=== PATIENT | female | born 2005 | race Caucasian/White ===

== ENCOUNTER 2025-02-06 05:31 | Inpatient (IN) | payer OTHER, SELFPAY ==
[2025-02-06] VITALS (20 sets, daily range): BP systolic 109–143; BP diastolic 63–86; PULSE 80–118; RESP 16–17; TEMP 36.5–37.4; O2SAT 96
[2025-02-06 06:57] LABS: HCT 34.8 % (36.0-46.0); HGB 10.7 g/dL (11.2-15.7); MCH 25.6 pg (27.0-33.0); MCHC 30.7 % (32.0-36.0); MCV 83 fL (80-95); MPV 9.6 fL (8.0-11.0); Platelet Count 389 10^3/uL (130-400); RBC 4.18 10^6/uL (3.93-5.22); RDW 15.5 % (11.7-14.6); RDW-SD 47.1 fL; WBC 12.48 10^3/uL (4.4-10.8)
--- NOTE | 2025-02-06 07:11 | W.PM.OBHPL1 ---
Date of service: 02/06/25 Time of Service: 07:11 Assessment and Plan Assessment and plan (1) Spontaneous onset of labor: Status: Acute Assessment and plan: Admit to Center and routine admission labs. Comfort measures. Alannah hopes to use the tub for comfort. Anticipate . OB-HPI Labor/Delivery History of Present Illness Reason for Visit: NST Chief Complaint: Uterine Contractions. LAN Calculator Estimated Delivery Date Method Current WG Current Estimate 02/10/25 Manual 39w 3d Other Estimates 02/07/25 Ultrasound #2 39w 6d Comments: Alannah transferred her care at 37 weeks from [facility]. She started care in [place] and labs were done there. Per inquiry at [facility] re: GBS status, it was reported as neg. Alannah called at 0345 and reported strong regular contractions at home. She denies ROM but has had a lot of mucus discharge lately. History of Present Expected Delivery Route/Plan - CNM ANGELA Lee, healthy (first baby) Desires option of waterbirth CHRIS Lee III Desires circ Specific Issues/Plan 1. Transfer of care from [facility] at 37 + 4 weeks gestation, started care in [place], obtain record release from [place] , Blood type A pos. 2. History of hypothyroid. Most recent TSH 11/17/24- 4.15 3. painful external hemorrhoid, r/o thrombosed, referred to general surgery (seen 01/30, no indication for I/D). Rx Anusol & Lidocaine. Assessment: History Reviewed & Current [facility] All Active Problems (Updated 02/06/25 @ 07:16 by Alice Ernandez CNM) Spontaneous onset of labor (Acute) Hemorrhoids during in third trimester (Acute) Thrombosed external hemorrhoid (Acute) History of PCOS (Acute) Hypothyroidism (Chronic) (Acute) G1, P0 late transfer of care at 36 weeks. GC negative hepatitis negative slic hepatitis C negative HIV negative RPR negative rubella immune. care initially at [place]. Normal 20-week ultrasound, a positive, 1 hour glucose tolerance test normal at 92 Family History (Updated 01/24/25 @ 15:23 by Alice Ernandez CNM) Father , 50 Heart disease Amyloidosis Diabetes Hypertension Maternal Grandmother Family history of alpha 1 antitrypsin deficiency Mother Cystic fibrosis Social History Smoking/Tobacco Use Status: Never Smoking risk assessment performed?: Yes Alcohol Intake: never Drug use: Never Substance use type: does not use Do you feel safe at home: Yes Do you feel safe in your relationship?: Yes History History 1 Para Hx # Term Pregnancies Multiple births Hx # Pregnancies Ectopic pregnancies AB induced Hx Number of Living Children 0 AB spontaneous Meds Allergies and Home Medications Allergies Allergy/AdvReac Type Severity Reaction Status Date / Time latex Allergy Mild Skin Rash Verified 02/01/25 16:00 No Known Drug Allergies Allergy Other (See Verified 02/01/25 16:00 Comment) Home Medications ?Medication ?Instructions ?Recorded ?Confirmed ?Type multivitamin 1 tab PO DAILY 01/24/25 02/06/25 History hydrocortisone acetate 25 mg 25 mg NC DAILY #12 ea 01/29/25 02/06/25 Rx rectal suppository (Anusol-HC) lidocaine HCl 4 % topical gel 1 applic topical BID-QID PRN pain 02/01/25 02/06/25 Rx #118 mL Exam Physical Exam Vital signs: Temp Pulse Resp BP 97.9 F 89 16 133/86 02/06/25 05:48 02/06/25 06:52 02/06/25 05:48 02/06/25 06:52 Vital Signs Reviewed: Yes Constitutional Constitutional: mild distress Detailed Labor and Delivery Exam Dilation: 6 Effacement (%): 100 station: 0 Cervix position: mid Consistency: soft Randolph Score: Cervical Points Exam 0 1 2 3 Dilation Closed 1-2cm 3-4 cm 5-6cm Effacement 0-30% 40-50% 60-70% 80% Consistency Firm Medium Soft Station -3 -2 -1,0 +1,+2 Position Posterior Mid Anterior Amniotic Membrane Status: Intact Monitor Mode: External Contraction Frequency(min): every 3 - 4 min Contraction Duration(sec): 60 Contraction Intensity: Strong Fetus A Heart Rate Baseline: 130 Monitor Accelerations: 15 X 15 Monitor Decelerations: None Variability: Moderate (6-25 BPM) Presentation: Cephalic Categories: Category I Est. Weight: 7 lb HEENT Exam HEENT Exam: Normal Respiratory Exam Respiratory Exam: Normal Cardiovascular Exam Cardiovascular Exam: Normal Abdominal Exam Abdominal Exam: Normal Exam Exam: Normal Extremities Exam Extremities Exam: Normal Skin Exam Skin Exam: Normal Psychiatric Exam Psychiatric Exam: Normal Results Results Group Beta Strep: Negative (per verbal report today at [facility]) Abnormal Lab Findings: Abnormal Labs 02/06/25 06:36 WBC 12.48 H Hgb 10.7 L Hct 34.8 L MCH 25.6 L MCHC 30.7 L RDW 15.5 H Risk Assessment Risk for Shoulder Dystocia Historical/Initial OB: NEGATIVE FOR: Pelvic Abnormality, Pre- BMI>30, Previous Shoulder Dystocia or Previous Macrosomia 36 Weeks: NEGATIVE FOR: Current Gestational DM, EFW>4500gms or Maternal Weight Gain>40lbs 40 Weeks: POSTIVE FOR: Maternal Weight Gain >40lb; NEGATIVE FOR: EFW> 4500 gms or Post Dates Increased Risk?: Yes Risk for Pre-Eclampsia Yes, if one or more: NEGATIVE FOR: Hx Pre-E/Gest HTN, Chronic HTN, Multiple Gestation, Pre-gestational DM, Renal Disease, Systemic Lupus or APA Syndrome Yes, if 2 or more: POSITIVE FOR: Nulliparity; NEGATIVE FOR: Age>= 35 yrs, >10yr btwn pregnancies, BMI>30, ethinicty, Mother/Sister w/ Pre-E or Previous IUGR Risk for Post- Hemorrhage Initial: NEGATIVE FOR: Multiple Gestation, Previous PPH, Known Clotting Deficiency, Grand Multiparity or Anticoagulation 36 Weeks: NEGATIVE FOR: Anemia, hgb<10, Low platelets(thrombocytopenia), Gestational HTN or Pre-E, Polyhydraminios or EFW>4500gms 40 Weeks: NEGATIVE FOR: Anemia, hgb<10, Low platelets (thrombocytopenia), Gestation HTN or Pre-E, Polyhydraminios or EFW>4500gms At Risk?: No Risks Reviewed Risks Reviewed Upon Admission: Yes
[2025-02-06 07:15] LABS: ALT 18 U/L (10-49); AST 20 U/L (<34); Albumin 4.0 g/dL (3.2-5.0); Alkaline Phosphatase 194 U/L (46-116); Anion Gap 10.5 mmol/L (3-11); BUN 12 mg/dL (9-23); Bilirubin, Total 0.4 mg/dL (0.2-1.2); CO2 21.5 mmol/L (20.0-31.0); Calcium 9.5 mg/dL (8.3-10.6); Chloride 105 mmol/L (98-107); Glucose 96 mg/dL (74-106); Potassium 3.9 mmol/L (3.5-5.1); Sodium 137 mmol/L (136-145); Total Protein 7.2 g/dL (5.7-8.2)
[2025-02-06] MEDS: Lidocaine 1% Multi-Dose 20 ML VIAL IJ (08:38)
[2025-02-06] MEDS: Oxytocin/Normal Saline 30 UNIT/500 ML BAG 167 UNITS IV (08:38)
[2025-02-06] MEDS: NALBUPHINE 5 MG in Normal Saline 50 ML 100 MG IV (09:19)
[2025-02-06] MEDS: Hamamelis Leaf/Glycerin 100 EACH BOX PR (10:34)
[2025-02-06] MEDS: Dibucaine 1% 28 GM TUBE TP (10:34)
[2025-02-06] MEDS: Ibuprofen 100 MG/5 ML CUP 400 MG PO (10:34)
--- NOTE | 2025-02-06 11:18 | W.OBDELIVERY ---
Date of service: 02/06/25 Time of Service: 11:18 OB Labor/ Delivery Information Baby A Delivery Delivery Method: Spontaneaous Presentation: Cephalic Vertex Position: Left Occipital Anterior Cord Description-Baby A: 3 Vessels Cord Description Comment: short cord Amniotic Fluid: Clear Estimated Blood Loss: 250 Delivery Outcome: Liveborn Infant Transferred: Remains with Mother Note: FHTs 120s during first stage of labor. Alannah moved to the tub and soon after began experiencing an urge to push. FHTs 120s in second stage. She progressed to full dilation and began pushing on her hands and knees. Her Jesus assisted er in the tub with her. Second stage huddle was done. Spontaneous delivery of male infant delivered in NIA position. Baby was placed on mother's arms. Spontaneous cry. Cord was clamped and cut by the baby's father. She was moved to her bed and The placenta delivered spontaneously and appears to by intact with a three vessel cord. Alannah declined IM pitocin and requested an IV for induction. An IV was started after several attempts, Pitocin 30 units was then administered ater delivery of the placenta. The perineum was inspected and a second degree laceration was encountered. Alannah had a very difficult time relaxing for repair of perineum. Nitrous oxide and IV push nubain 5 mg was helpful and she tolerated the repair better. The baby did breastfeed. After delivery, Mother and baby and father of the baby were stable and bonding well in the delivery room and there were no complications. His name is Jesus PERKINS. Records have been requested from [place] with labs. Providers Nurse Editor [employer]: Alice Ernandez Nurse: Kayleigh Burks Nurse: Nguyen Hamilton Labor/Delivery Information Steroids Given: None Reason Steroids Not Administered: N/A Group Beta Strep: Negative (reported by phone from labor and delivery at [facility]) Antibiotics Administered: No Blood Type: A+ Shoulder Dystocia: No Stages of Labor Onset of Labor Date: 02/06/25 Onset of Labor Time: 01:00 Complete Dilatation Date: 02/06/25 Complete Dilatation Time: 08:25 Labor - Stage 1 Duration: 7 hours and 25 minutes Delivery Date-Baby A: 02/06/25 Infant Delivery Time-Baby A: 08:38 Labor Stage 2 Duration: 13 minutes Placenta Delivery Date-Baby A: 02/06/25 Placenta Delivery Time-Baby A: 08:52 Labor-Stage 3 Duration: 14 minutes Total Length of Labor-Baby A: 7 hours and 38 minutes Placenta Status: Delivered Baby A Gender: Male Gestational Status: Term (39-41.6 wks) Gestational Age in Weeks/Days: 39 Weeks and 3 Days Score-1 Minute Interval(Baby A) Heart Rate-1 minute: 100 BPM or Greater Respiratory Effort- 1 minute: Spontaneous/Strong Cry Muscle Tone-1 minute: Active Movement Reflex Response-1 minute: Prompt Response Color-1 minute: Pallor or Cyanosis Total Score-1 minute: 8 Score-5 Minute Interval(Baby A) Heart Rate- 5 minute: 100 BPM or Greater Respiratory Effort-5 minute: Spontaneous/Strong Cry Muscle Tone-5 minute: Active Movement Reflex Response-5 minute: Prompt Response Color-5 minute: Bluish Hands or Feet Total Score- 5 minute: 9 Interventions Repair of Laceration Type: Perineal, Laceration Extension: Second Degree. Sponge Count Correct: No Sponges Placed in Vagina, Sharp Count Correct: Yes. Laceration Repair Note: repair with one uninterrupted 3-0 vicryl suture and one external nilda-anal ineterrupted skin suture.
[2025-02-06 19:08] LABS: Abs Immature Grans 0.14 10^3/uL (0.0-0.06); HCT 28.4 % (36.0-46.0); HGB 8.9 g/dL (11.2-15.7); Immature Grans % 0.9 %; MCH 26.0 pg (27.0-33.0); MCHC 31.3 % (32.0-36.0); MCV 83 fL (80-95); MPV 10.0 fL (8.0-11.0); Platelet Count 306 10^3/uL (130-400); RBC 3.42 10^6/uL (3.93-5.22); RDW 15.5 % (11.7-14.6); RDW-SD 46.7 fL; WBC 16.43 10^3/uL (4.4-10.8)
[2025-02-06] MEDS: Acetaminophen 80 MG CHEW 640 MG PO (20:40)
[2025-02-06] MEDS: Ibuprofen 100 MG/5 ML CUP 600 MG PO (20:40)
[2025-02-07] MEDS: Acetaminophen 80 MG CHEW 640 MG PO (00:59)
[2025-02-07] MEDS: Ibuprofen 100 MG/5 ML CUP 600 MG PO ×2 (02:34→16:58)
[2025-02-07] MEDS: Normal Saline Flush 10 ML SYR IVP (03:00)
[2025-02-07 08:15] VITALS: BP 117/81; PULSE 93; RESP 16; TEMP 36.7; O2SAT 97
--- NOTE | 2025-02-07 08:19 | OBPPV_ITS ---
Date of service: 02/07/25 Time of Service: 08:19 Assessment and Plan Assessment and plan (1) Anemia, : Status: Acute Assessment and plan: Pt denies feeling dizzy or short of breath Hgb 8.9, iron sucrose infusion planned for this morning (2) Term delivered: Status: Acute Assessment and plan: A: PPD#1, pt is satisfied with experience; a bit tentative at this point Hemorrhoids continue to cause pt discomfort 2nd degree perineal repair also uncomfortable General musculoskeletal pain addressed with tylenol & ibuprofen Urine output 1700 ml since delivery, normotensive, afebrile this morning P: Topical treatments for rectal and perineal discomfort Iron infusion this morning; received IVF through the night due to infrequent voiding Recheck CBC this afternoon (WBC @ 16 yesterday) Monitor temp, output, and encourage pt to ambulate hourly while awake SCD's if pt declines to get out of bed; continue tylenol/ibuprofen Offer varicella vaccine prior to discharge which is planned for tomorrow LC consult to support (3) Hemorrhoids during in third trimester: Status: Acute Assessment and plan: Tucks and lidocaine ointment for prn application Stool softeners ordered Subjective Subjective Interval history: Pt states her hemorrhoids hurt and her stitches are painful, is afraid to get up and void or move around much due to discomfort. Unable to swallow pills and requests liquid or chewable medication Patient comments: Tolerating diet and Flatus present Patient's Mood: calm [place] baby status: Doing well, Nursing well and Rooming in [place] feeding status: Exclusively breast feeding Exam Physical Exam Vital signs: Temp Pulse Resp BP Pulse Ox 98.1 F 107 H 16 109/70 96 02/06/25 23:00 02/06/25 23:00 02/06/25 23:00 02/06/25 23:00 02/06/25 23:00 Vital Signs Reviewed: Yes Narrative: Earlier low grade temp noted, seemly resolved. Constitutional Constitutional: mild distress, obese and cooperative HEENT Exam HEENT Exam: Normal Neck Exam Neck Exam: Normal Breast Exam Bilateral: Breast Exam: Normal and Soft Nipple Exam: Normal and Uninjured Respiratory Exam Respiratory Exam: Normal Cardiovascular Exam Cardiovascular Exam: Normal Abdominal Exam Abdomen: Other (soft, nontender) Fundal Exam Fundus: Below Umbilicus and Firm Rectal Exam Rectal Exam: Hemmorhoids Exam Perineum: Repair Intact Extremities Exam Extremity Exam: Normal, Full ROM and Warm to Touch Back/Spine/Pelvis Exam Back Exam: Normal Skin Exam Skin Exam: Normal Neurological Exam Neurological Exam: Normal Psychiatric Exam Psychiatric Exam: Normal (nurses evaluating bonding and attachment with ) Results Hemoglobin/Hematocrit: Hgb Cancelled 02/07/25 10:00 Hct Cancelled 02/07/25 10:00 Abnormal Lab Findings: Abnormal Labs 02/06/25 02/06/25 06:36 18:50 WBC 12.48 H 16.43 H RBC 3.42 L Hgb 10.7 L 8.9 L Hct 34.8 L 28.4 L MCH 25.6 L 26.0 L MCHC 30.7 L 31.3 L RDW 15.5 H 15.5 H Absolute Neutrophils 11.78 H Absolute Monocytes 1.36 H Creatinine 0.47 L Alkaline Phosphatase 194 H
[2025-02-07] MEDS: IRON SUCROSE COMPLEX 300 MG in Normal Saline 250 ML 167 MG IVPB (08:46)
[2025-02-07] MEDS: Lidocaine 4% Cream 5 GM TUBE TP (08:47)
[2025-02-07 13:35] VITALS: BP 111/70; PULSE 108; RESP 16; TEMP 36.8; O2SAT 96
[2025-02-07 14:30] LABS: Abs Immature Grans 0.25 10^3/uL (0.0-0.06); HCT 29.8 % (36.0-46.0); HGB 9.2 g/dL (11.2-15.7); Immature Grans % 1.6 %; MCH 26.1 pg (27.0-33.0); MCHC 30.9 % (32.0-36.0); MCV 84 fL (80-95); MPV 9.3 fL (8.0-11.0); Platelet Count 305 10^3/uL (130-400); RBC 3.53 10^6/uL (3.93-5.22); RDW 15.9 % (11.7-14.6); RDW-SD 48.0 fL; WBC 16.12 10^3/uL (4.4-10.8)
[2025-02-07 16:50] VITALS: BP 126/86; PULSE 104; RESP 16; TEMP 36.9; O2SAT 97
[2025-02-07] MEDS: Acetaminophen Solution 650 MG/20.3 ML CUP PO (16:58)
[2025-02-07 20:00] VITALS: BP 116/70; PULSE 107; RESP 18; TEMP 36.4; O2SAT 98
[2025-02-08 00:30] VITALS: BP 125/78; PULSE 101; RESP 18; TEMP 36.8; O2SAT 98
[2025-02-08 04:01] VITALS: BP 121/82; PULSE 102; RESP 18; TEMP 36.7; O2SAT 97
[2025-02-08 05:51] LABS: HCT 28.4 % (36.0-46.0); HGB 8.7 g/dL (11.2-15.7); MCH 26.3 pg (27.0-33.0); MCHC 30.6 % (32.0-36.0); MCV 86 fL (80-95); MPV 9.7 fL (8.0-11.0); Platelet Count 297 10^3/uL (130-400); RBC 3.31 10^6/uL (3.93-5.22); RDW 16.0 % (11.7-14.6); RDW-SD 49.2 fL; WBC 17.45 10^3/uL (4.4-10.8)
[2025-02-08 08:30] VITALS: BP 119/83; PULSE 98; RESP 16; TEMP 36.7; O2SAT 98
--- NOTE | 2025-02-08 08:54 | W.PM.OBPNV1 ---
Date of service: 02/08/25 Time of Service: 08:54 Assessment and Plan Assessment and plan (1) Anemia, : Status: Acute Assessment and plan: Pt denies feeling dizzy or short of breath iron sucrose infusion 300 mg IV given yesterday (2) Term delivered: Status: Acute Assessment and plan: A: PPD#2, is progressing Hemorrhoids less painful, no edema; 2nd degree perineal repair intact CBC today: WBC @ 17 today, hgb 8.7; afebrile x48 hrs Declines varicella vaccine P: Discharge to home today, reviewed pt status with Dr. Howell Will check urine C&S; plan recheck CBC in 1 week Written instructions reviewed and given Additional f/up @ 2 & 6 wks; undecided about contraception (3) Hemorrhoids during in third trimester: Status: Acute Assessment and plan: Tucks and lidocaine ointment for prn application Stool softeners ordered Subjective Subjective Patient comments: No complaints, Pain well controlled, Tolerating diet and Flatus present Patient's Mood: happy baby status: Doing well, Nursing well, Rooming in and Strong Bonding Observed feeding status: Exclusively breast feeding Exam Physical Exam Vital signs: Temp Pulse Resp BP Pulse Ox 98.1 F 102 H 18 121/82 97 02/08/25 04:01 02/08/25 04:01 02/08/25 04:01 02/08/25 04:01 02/08/25 04:01 Vital Signs Reviewed: Yes Constitutional Constitutional: no acute distress and cooperative HEENT Exam HEENT Exam: Normal Neck Exam Neck Exam: Normal Breast Exam Bilateral: Breast Exam: Normal and Soft Respiratory Exam Respiratory Exam: Normal Cardiovascular Exam Cardiovascular Exam: Normal Abdominal Exam Abdomen: Other (soft, nontender) Fundal Exam Fundus: Below Umbilicus and Firm Exam Perineum: Repair Intact Extremities Exam Extremity Exam: Normal, Full ROM and Warm to Touch Back/Spine/Pelvis Exam Back Exam: Normal Skin Exam Skin Exam: Normal Neurological Exam Neurological Exam: Normal Psychiatric Exam Psychiatric Exam: Normal (nurses evaluating bonding and attachment with ) Results Abnormal Lab Findings: Abnormal Labs 02/06/25 02/06/25 02/07/25 06:36 18:50 14:15 WBC 12.48 H 16.43 H 16.12 H RBC 3.42 L 3.53 L Hgb 10.7 L 8.9 L 9.2 L Hct 34.8 L 28.4 L 29.8 L MCH 25.6 L 26.0 L 26.1 L MCHC 30.7 L 31.3 L 30.9 L RDW 15.5 H 15.5 H 15.9 H Absolute Neutrophils 11.78 H 11.88 H Absolute Monocytes 1.36 H 1.10 H Creatinine 0.47 L Alkaline Phosphatase 194 H 02/08/25 05:15 WBC 17.45 H RBC 3.31 L Hgb 8.7 L Hct 28.4 L MCH 26.3 L MCHC 30.6 L RDW 16.0 H Absolute Neutrophils Absolute Monocytes Creatinine Alkaline Phosphatase Hemorrrhage Note IV Site Right Antecubital: IV Catheter Gauge: 20
--- NOTE | 2025-02-08 09:14 | DSE_ITS ---
Date of service: 02/08/25 Time of Service: 09:14 DS: Diagnosis Discharge Diagnosis (1) Anemia, : Status: Acute (2) Term delivered: Status: Acute (3) Hemorrhoids during in third trimester: Status: Acute Discharge Plan Disposition Patient Disposition: Home Condition: Improving Discharge Details Reason For Visit: Labor Admit Date/Time: 02/06/25 05:31 Admit Provider: Alice Ernandez Attending Provider: Alice Ernandez Primary Care Provider: Alice Ernandez Hospital Course Hospital Course: Admitted in labor, on HD#1, anemia identified and treated with iron infusion, desires discharge on day 2. Home Meds and New Rx's Prescriptions: No Action lidocaine HCl 4 % gel 1 applic topical BID-QID PRN (Reason: pain) Qty: 118 2RF hydrocortisone acetate [Anusol-HC] 25 mg suppository 25 mg [place] DAILY Qty: 12 0RF multivitamin Tablet 1 tab PO DAILY Discharge Instructions Stand Alone Forms: Portal Information Activity:: Activity as Tolerated Equipment/Supplies:: No Equipment Needed Diet:: Normal Diet OB:DS Summary Summary Vaginal Delivery Method: Spontaneaous Laceration Description: Perineal Laceration Extension: Second Degree Contraception Discussed Contraception Discussed: Yes Contraceptive Plan: Undecided, Infant Gender-Baby A: Male weight: 7 lb 11.282 oz Status at Discharge Functional status at discharge: independent ambulation Overall status at discharge: patient is progressing back to baseline Mental Status: mental status grossly normal Speech and Movement: speech and movement normal and speech clear Mood: congruent mood Affect: normal affect Exam Physical Exam Vital signs: Temp Pulse Resp BP Pulse Ox 98.1 F 98 H 16 119/83 98 02/08/25 08:30 02/08/25 08:30 02/08/25 08:30 02/08/25 08:30 02/08/25 08:30 Constitutional Constitutional: no acute distress and cooperative HEENT Exam HEENT Exam: Normal Neck Exam Neck Exam: Normal Breast Exam Bilateral: Breast Exam: Normal and Soft Respiratory Exam Respiratory Exam: Normal Cardiovascular Exam Cardiovascular Exam: Normal Abdominal Exam Abdomen: Other (soft, nontender) Fundal Exam Fundus: Below Umbilicus and Firm Exam Perineum: Repair Intact Extremities Exam Extremity Exam: Normal, Full ROM and Warm to Touch Back/Spine/Pelvis Exam Back Exam: Normal Skin Exam Skin Exam: Normal Neurological Exam Neurological Exam: Normal Psychiatric Exam Psychiatric Exam: Normal (nurses evaluating bonding and attachment with ) PFSH All Active Problems (Updated 02/06/25 @ 19:42 by Marisabel Broussard) Anemia, (Acute) Term delivered (Acute) Maternal varicella, non-immune (Acute) Hemorrhoids during in third trimester (Acute) History of PCOS (Acute) Hypothyroidism (Chronic) (Acute) G1, P0 late transfer of care at 36 weeks. GC negative hepatitis negative slic hepatitis C negative HIV negative RPR negative rubella immune. care initially at [place]. Normal 20-week ultrasound, a positive, 1 hour glucose tolerance test normal at 92 Medical History (Updated 02/06/25 @ 19:42 by Marisabel Broussard) Spontaneous onset of labor Thrombosed external hemorrhoid Family History (Updated 01/24/25 @ 15:23 by Alice Ernandez CNM) Father , 50 Heart disease Amyloidosis Diabetes Hypertension Maternal Grandmother Family history of alpha 1 antitrypsin deficiency Mother Cystic fibrosis Social History Smoking/Tobacco Use Status: Never Smoking risk assessment performed?: Yes Alcohol Intake: never Drug use: Never Substance use type: does not use Do you feel safe at home: Yes Do you feel safe in your relationship?: Yes History History 1 Para 0 Hx # Term Pregnancies Multiple births Hx # Pregnancies Ectopic pregnancies AB induced Hx Number of Living Children 0 AB spontaneous DS: Data Vitals/I&O Vitals and I&O: Vital Signs Temperature 98.1 F 02/08/25 08:30 Temperature Source Oral 02/08/25 08:30 Pulse 98 H 02/08/25 08:30 Pulse Rhythm Regular 02/08/25 08:30 Respiratory Rate 16 02/08/25 08:30 Respiratory Depth Normal 02/06/25 07:15 Blood Pressure 119/83 02/08/25 08:30 Blood Pressure Mean 95 02/08/25 08:30 Pulse Oximetry 98 02/08/25 08:30 Oxygen Delivery Method Room Air 02/06/25 05:48 Oxygen Flow Rate 0 02/06/25 05:48 Pain Level 1 02/08/25 08:30 Comment CNM made aware of patients vital signs 02/06/25 16:00 Intake & Output 02/07/25 02/07/2502/08/25 11:59 23:59 11:59 Intake Total 1465 / 1465 Output Total 1400 / 1700 300 / 1700 Balance 65 / -235 -300 / -235 Intake: IV 1165 / 1165 Oral 300 / 300 Output: Urine 1400 / 1700 300 / 1700 Other: Urine Color Yellow Yellow Urine Appearance Clear Clear Urine Odor Normal None Comment pt voiding independently. pt voiding independently. Data Completed and Pending Pending Labs at Discharge: 02/06/25 02/06/25 02/07/25 06:36 18:50 10:00 WBC 12.48 H 16.43 H Cancelled RBC 4.18 3.42 L Cancelled Hgb 10.7 L 8.9 L Cancelled Hct 34.8 L 28.4 L Cancelled MCV 83 83 Cancelled MCH 25.6 L 26.0 L Cancelled MCHC 30.7 L 31.3 L Cancelled RDW 15.5 H 15.5 H Cancelled Plt Count 389 306 Cancelled MPV 9.6 10.0 Cancelled Immature Gran % 0.9 Cancelled Neutrophils % 71.7 Cancelled Band Neutrophils % Cancelled Lymphocytes % 18.5 Cancelled Atypical Lymphs % Cancelled Monocytes % 8.3 Cancelled Eosinophils % 0.2 Cancelled Basophils % 0.4 Cancelled Metamyelocytes % Cancelled Myelocytes % Cancelled Promyelocytes % Cancelled Other Cells % Cancelled Nucleated RBC % 0.0 Cancelled Absolute Neutrophils 11.78 H Cancelled Absolute Lymphocytes 3.04 Cancelled Absolute Monocytes 1.36 H Cancelled Absolute Eosinophils 0.03 Cancelled Absolute Basophils 0.07 Cancelled RBC Morphology Cancelled Polychromasia Cancelled Hypochromasia Cancelled Poikilocytosis Cancelled Basophilic Stippling Cancelled Anisocytosis Cancelled Microcytosis Cancelled Macrocytosis Cancelled Spherocytes Cancelled Tear Drop Cells Cancelled Ovalocytes Cancelled Stomatocytes Cancelled Cheng-Houck Bodies Cancelled Bang Cells/Echinocytes Cancelled Acanthocytes (Spur) Cancelled Schistocytes Cancelled Sodium 137 Potassium 3.9 Chloride 105 Carbon Dioxide 21.5 Anion Gap 10.5 BUN 12 Creatinine 0.47 L Est GFR (CKD-EPI 2020) 166.98 Glucose 96 Calcium 9.5 Total Bilirubin 0.4 AST 20 ALT 18 Alkaline Phosphatase 194 H Total Protein 7.2 Albumin 4.0 ABO/Rh A Positive Antibody Screen NEGATIVE 02/07/25 02/08/25 14:15 05:15 WBC 16.12 H 17.45 H RBC 3.53 L 3.31 L Hgb 9.2 L 8.7 L Hct 29.8 L 28.4 L MCV 84 86 MCH 26.1 L 26.3 L MCHC 30.9 L 30.6 L RDW 15.9 H 16.0 H Plt Count 305 297 MPV 9.3 9.7 Immature Gran % 1.6 Neutrophils % 73.7 Band Neutrophils % Lymphocytes % 17.1 Atypical Lymphs % Monocytes % 6.8 Eosinophils % 0.4 Basophils % 0.4 Metamyelocytes % Myelocytes % Promyelocytes % Other Cells % Nucleated RBC % 0.1 Absolute Neutrophils 11.88 H Absolute Lymphocytes 2.76 Absolute Monocytes 1.10 H Absolute Eosinophils 0.06 Absolute Basophils 0.06 RBC Morphology Polychromasia Hypochromasia Poikilocytosis Basophilic Stippling Anisocytosis Microcytosis Macrocytosis Spherocytes Tear Drop Cells Ovalocytes Stomatocytes Cheng-Houck Bodies [place] Cells/Echinocytes Acanthocytes (Spur) Schistocytes Sodium Potassium Chloride Carbon Dioxide Anion Gap BUN Creatinine Est GFR (CKD-EPI 2020) Glucose Calcium Total Bilirubin AST ALT Alkaline Phosphatase Total Protein Albumin ABO/Rh Antibody Screen
[2025-02-08 13:10] VITALS: BP 110/72; PULSE 104; RESP 16; TEMP 36.7; O2SAT 98
== END 2025-02-08 16:33 | disposition home or self-care (01) | DRG 807 ==
LOC: BCD 09:24 → OBS 09:24
PROVIDERS: Advanced Practice Midwife; Admitting Provider Advanced Practice Midwife; PCP Advanced Practice Midwife; Visit Provider Advanced Practice Midwife
DX: O22.43 Hemorrhoids in pregnancy, third trimester (principal); Z37.0 Single live birth; O90.81 Anemia of the puerperium; Z3A.39 39 weeks gestation of pregnancy; O99.284 Endocrine, nutritional and metabolic diseases complicating childbirth; E03.9 Hypothyroidism, unspecified; E28.2 Polycystic ovarian syndrome; O69.3XX0 Labor and delivery complicated by short cord, not applicable or unspecified; O70.1 Second degree perineal laceration during delivery
CPT/HCPCS: 36415; 80053; 85027; 86850; 86900; 86901; 85025; 87086; J1756; J2003; J2300

== ENCOUNTER 2025-02-09 17:30 | Observation (INO) | payer OTHER, SELFPAY ==
[2025-02-09 16:10] VITALS: BP 122/81; PULSE 116; TEMP 37.4
[2025-02-09 16:12] LABS: Abs Immature Grans 0.42 10^3/uL (0.0-0.06); HCT 31.6 % (36.0-46.0); HGB 9.4 g/dL (11.2-15.7); Immature Grans % 2.8 %; MCH 25.7 pg (27.0-33.0); MCHC 29.7 % (32.0-36.0); MCV 86 fL (80-95); MPV 9.1 fL (8.0-11.0); Platelet Count 311 10^3/uL (130-400); RBC 3.66 10^6/uL (3.93-5.22); RDW 16.3 % (11.7-14.6); RDW-SD 50.3 fL; WBC 15.26 10^3/uL (4.4-10.8)
[2025-02-09 16:57] LABS: Lipase 31 U/L (<53)
[2025-02-09 16:59] LABS: ALT 57 U/L (10-49); AST 69 U/L (<34); Albumin 4.1 g/dL (3.2-5.0); Alkaline Phosphatase 158 U/L (46-116); Amylase 65 U/L (30-118); Anion Gap 8.1 mmol/L (3-11); BUN 11 mg/dL (9-23); Bilirubin, Total 0.4 mg/dL (0.2-1.2); CO2 28.9 mmol/L (20.0-31.0); Calcium 9.1 mg/dL (8.3-10.6); Chloride 105 mmol/L (98-107); Glucose 95 mg/dL (74-106); Potassium 3.9 mmol/L (3.5-5.1); Sodium 142 mmol/L (136-145); Total Protein 7.2 g/dL (5.7-8.2)
--- NOTE | 2025-02-09 17:30 | RT.EKG_ITS ---
APPROVED REPORT Exam: Resting ECG Reason for Exam: tachycardia Patient Location: I HR:112 bpm ECG Measurements Heart Rate 112 AXIS ME 154 P 49 QRSd 83 QRS 52 QT 319 T 28 QTc 436 Conclusion Sinus tachycardia...rate> 99 Probable left atrial enlargement...P >50mS, <-0.10mV V1 Otherwise normal ECG
[2025-02-09 17:36] LABS: Prot/Crea Ur Ratio 0.18 mg/mg Cr
[2025-02-09 17:51] LABS: Glucose Negative (Negative)
[2025-02-09 17:54] VITALS: BP 128/76
--- NOTE | 2025-02-09 18:00 | OBCE_ITS ---
Date of service: 02/09/25 Time of Service: 18:00 Assessment and Plan Assessment and plan (1) Vaginal delivery: Status: Acute Assessment and plan: 19-year-old -0-0-1 s/p 39-week performed 02/06/2025 - Rh +/ Rub I/ VZV NI / GBS negative - complicated by hypothyroidism (well-controlled), external hemorrhoids, extensive history of trauma - Intrapartum course reportedly uncomplicated; of note, I understand the second- degree perineal was not repaired at the time of delivery based on patient intolerance, good approximation, hemostasis, and clinical stability - course reportedly uncomplicated - Meeting all appropriate milestones - Lochia appropriate - Breast-feeding without issue - Contraceptive planning: Pending - Last Pap smear pending - depression counseling pending - - - - - - - - - - - - - - - - - 02/09/2025 (Priscilla): Patient presented for routine evaluation following reportedly uncomplicated vaginal delivery from 3 days ago. Blood work appears stable and vital signs are appropriate outside of the mild, asymptomatic tachycardia. CMP drawn today reveals mild transaminitis; this is of note given the patient's right upper quadrant discomfort. However, she exhibits no signs or symptoms and has no clinical concerns for preeclampsia. Blood pressures were reassessed with manual blood pressure cuff and consistent with automated recordings. I do not find evidence of concerns for infection/sepsis; however, I do feel as though she warrants prolonged monitoring and further workup. Patient strongly advised to hydrate; she is tolerating orals, and she is provided with oral hydration. She does endorse a significant history of reflux; the patient is unable to tolerate pills. Goddess cocktail provided to assess for any relief of discomfort and liquid Pepcid prescribed for prolonged control. Right upper quadrant ultrasound ordered for assessment of transaminitis in the setting of right upper quadrant pain, and labs ordered for repeat with additional labs for ruling out other potential etiologies to be drawn at the same time. COVID testing also ordered, of note, patient denies any alcohol use and history is not concerning for substance use disorder. We will monitor with serial blood pressures overnight and reassess her clinical status in the morning. I do not feel magnesium therapy is warranted at this time as I do not find evidence of preeclampsia. TSH added onto [facility]'s bloodwork. - - - - - - - - - - - - - - - - - (2) Transaminitis: Status: Acute (3) Tachycardia: Status: Acute (4) Hypothyroidism: Status: Chronic (5) Anemia, : Status: Acute History of Present Illness Narrative: 19 yo s/p from 02/06/2025 presented to L&D, today, for a weight check on her baby and follow up from . Patient reports feeling overall well, though she has had some discomfort in the RUQ radiating to her back. She denies nausea / vomiting, chest pain, palpitations, lightheadedness / dizziness. She is mostly concerned about her swelling which she states has been stable since discharge though uncomfortable. Her lochia has reportedly been appropriate. Her medical history is notable for hypothyroidism as well as history of PCOS. Her was without blood pressure complications or concerns of preeclampsia, and the patient denies any signs or symptoms of preeclampsia. She further denies any concerns for fevers, chills; her GBS status was noted to have been negative, and she was without evidence of infection in the peripartum and periods. Per the notes, she does not appear to have been prolonged rupture. Review of Systems Narrative: Review of systems is negative except for that mentioned above. [facility] All Active Problems (Updated 02/09/25 @ 18:58 by Nola Wells DO) Vaginal delivery (Acute) Tachycardia (Acute) Transaminitis (Acute) Anemia, (Acute) Term delivered (Acute) Maternal varicella, non-immune (Acute) Hemorrhoids during in third trimester (Acute) History of PCOS (Acute) Hypothyroidism (Chronic) (Acute) G1, P0 late transfer of care at 36 weeks. GC negative hepatitis negative slic hepatitis C negative HIV negative RPR negative rubella immune. care initially at [place]. Normal 20-week ultrasound, a positive, 1 hour glucose tolerance test normal at 92 Medical History Spontaneous onset of labor Thrombosed external hemorrhoid Family History Father , 50 Heart disease Amyloidosis Diabetes Hypertension Maternal Grandmother Family history of alpha 1 antitrypsin deficiency Mother Cystic fibrosis Social History Smoking/Tobacco Use Status: Never Smoking risk assessment performed?: Yes Alcohol Intake: never Drug use: Never Substance use type: does not use Do you feel safe at home: Yes Do you feel safe in your relationship?: Yes History History 2 1 Para 0 Hx # Term Pregnancies Multiple births Hx # Pregnancies Ectopic pregnancies AB induced Hx Number of Living Children 0 AB spontaneous Exam Narrative Exam Narrative: General: Well-nourished female in no immediate distress Pulm: No overt respiratory distress; able to speak in complete sentences. Clear to auscultation bilaterally. Card: Mild pansystolic murmur consistent with ; no overt arrhythmias. Tachycardic. Abdomen: Nondistended. Mild to moderate right upper quadrant tenderness with right sided flank pain. Fundus firm and nontender. Extremities: +1 nonpitting edema noted equally bilaterally; consistent with Psych: Cooperative, appropriate Results Last Vital Signs Temp 99.3 F 02/09/25 16:10 Pulse 116 H 02/09/25 16:10 BP 128/76 02/09/25 17:54 Labs 02/09/25 16:07 02/09/25 16:26 Labs: Laboratory Results - last 24 hr 02/09/25 02/09/25 02/09/25 16:07 16:26 16:37 WBC 15.26 H RBC 3.66 L Hgb 9.4 L Hct 31.6 L MCV 86 MCH 25.7 L MCHC 29.7 L RDW 16.3 H Plt Count 311 MPV 9.1 Immature Gran % 2.8 Neutrophils % 74.3 Lymphocytes % 15.0 Monocytes % 6.2 Eosinophils % 1.2 Basophils % 0.5 Nucleated RBC % 0.5 H Absolute Neutrophils 11.34 H Absolute Lymphocytes 2.29 Absolute Monocytes 0.95 H Absolute Eosinophils 0.18 Absolute Basophils 0.08 VBG Lactate 1.3 Sodium 142 Potassium 3.9 Chloride 105 Carbon Dioxide 28.9 Anion Gap 8.1 BUN 11 Creatinine 0.52 L Est GFR (CKD-EPI 2020) 148.58 Glucose 95 Calcium 9.1 Total Bilirubin 0.4 AST 69 H ALT 57 H Alkaline Phosphatase 158 H Total Protein 7.2 Albumin 4.1 Amylase 65 Lipase 31 Urine Color Yellow Urine Clarity Clear Urine pH 7.0 Ur Specific [place] 1.020 Urine Protein 30 H Urine Ketones Trace H Urine Blood Moderate H Urine Nitrite Negative Urine Bilirubin Negative Urine Urobilinogen 0.2 Ur Leukocyte Esterase Negative Ur Random Creatinine 192.80 U Random Total Protein 35.4 H U [place] Prot/Creat Ratio 0.18 Urine Glucose Negative Add-On Test Request 02/09/25 02/09/25 17:37 Unknown WBC RBC Hgb Hct MCV MCH MCHC RDW Plt Count MPV Immature Gran % Neutrophils % Lymphocytes % Monocytes % Eosinophils % Basophils % Nucleated RBC % Absolute Neutrophils Absolute Lymphocytes Absolute Monocytes Absolute Eosinophils Absolute Basophils VBG Lactate Sodium Potassium Chloride Carbon Dioxide Anion Gap BUN Creatinine Est GFR (CKD-EPI 2020) Glucose Calcium Total Bilirubin AST ALT Alkaline Phosphatase Total Protein Albumin Amylase Lipase Urine Color Cancelled Urine Clarity Cancelled Urine pH Cancelled Ur Specific [place] Cancelled Urine Protein Cancelled Urine Ketones Cancelled Urine Blood Cancelled Urine Nitrite Cancelled Urine Bilirubin Cancelled Urine Urobilinogen Cancelled Ur Leukocyte Esterase Cancelled Ur Random Creatinine U Random Total Protein U [place] Prot/Creat Ratio Urine Glucose Cancelled Add-On Test Request Cancelled
[2025-02-09] MEDS: Ibuprofen 100 MG/5 ML CUP 400 MG PO ×2 (18:45→22:00)
[2025-02-09] MEDS: MYLANTA 30 ML, LIDOCAINE 2% VISCOUS UD 15 ML PO (18:51)
[2025-02-09 19:08] LABS: Troponin I < 3 ng/L (<35)
[2025-02-09 19:13] LABS: Lab Add On Test DONE
[2025-02-09 19:30] LABS: TSH 2.33 uIU/mL (0.55-4.78)
[2025-02-09 20:00] VITALS: BP 129/90; PULSE 128; RESP 17; TEMP 36.8; O2SAT 96
--- NOTE | 2025-02-09 20:45 | HPE_ITS ---
Date of service: 02/09/25 Time of Service: 19:00 Assessment and Plan Assessment and plan (1) Tachycardia: Status: Acute Assessment and plan: ekg performed and sinus tachycardia noted. viewed by Dr. Ruiz, hospitalist. (2) Elevated liver enzymes: Status: Acute Assessment and plan: CBC and CMP on admission. AST and AT elevated. Hgb 9.4, lactate WNL. protein/ creatineen ratio WNL. lipase, amylase WNL. Consult with Dr Wells who recommends overnight observation and abdominal US if possible. urinalysis, EKG, [place]/ viscose lidocaine for epigastric pain as well as famotidine solution as Alannah can not swallow pills. Motrin suspension for pain relief. Vital signs every 4 hours and abdominal imaging if possible. covid testing. History of Present Illness Narrative: Alannah came in for weight check for weight check for her baby. She met with Tangela WADE for weight check. She reported edema of her feet and upper abdominal/epigastric discomfort and upper back pain. She had not taken any pain medication that day. She denies chills or flulike symptoms. PFSH All Active Problems (Updated 02/09/25 @ 20:54 by Alice Ernandez CNM) Elevated liver enzymes (Acute) Vaginal delivery (Acute) Tachycardia (Acute) Transaminitis (Acute) Anemia, (Acute) Term delivered (Acute) Maternal varicella, non-immune (Acute) Hemorrhoids during in third trimester (Acute) History of PCOS (Acute) Hypothyroidism (Chronic) (Acute) G1, P0 late transfer of care at 36 weeks. GC negative hepatitis negative hepatitis C negative HIV negative RPR negative rubella immune. care initially at [place]. Normal 20-week ultrasound, a positive, 1 hour glucose tolerance test normal at 92 Medical History Spontaneous onset of labor Thrombosed external hemorrhoid Family History Father , 50 Heart disease Amyloidosis Diabetes Hypertension Maternal Grandmother Family history of alpha 1 antitrypsin deficiency Mother Cystic fibrosis Social History Smoking/Tobacco Use Status: Never Smoking risk assessment performed?: Yes Alcohol Intake: never Drug use: Never Substance use type: does not use Do you feel safe at home: Yes Do you feel safe in your relationship?: Yes History History 2 1 Para 0 Hx # Term Pregnancies Multiple births Hx # Pregnancies Ectopic pregnancies AB induced Hx Number of Living Children 0 AB spontaneous Meds Allergies and Home Medications Allergies Allergy/AdvReac Type Severity Reaction Status Date / Time latex Allergy Mild Skin Rash Verified 02/01/25 16:00 No Known Drug Allergies Allergy Other (See Verified 02/01/25 16:00 Comment) Home Medications ?Medication ?Instructions ?Recorded ?Confirmed ?Type multivitamin 1 tab PO DAILY 01/24/2501/16 History hydrocortisone acetate 25 mg 25 mg RI DAILY #12 ea 02/06/25 Rx rectal suppository (Anusol-HC) lidocaine HCl 4 % topical gel 1 applic topical BID-QID PRN pain 02/01/25 02/06/25 Rx #118 mL Exam Narrative Exam Narrative: alert and pleasant, seated in bed, massaging her breasts for milk production. HENMT Head: normal to inspection Neck Neck: normal visual inspection Resp Effort & Inspection: normal respiratory effort Auscultation: clear to auscultation bilaterally Cardio Rate: regular rate Heart Sounds: murmur (grade II/ ) systolic GI Inspection: normal to inspection Palpation: soft and tender in the epigastrum Back/Spine/Pelvis Back: CVA tenderness (slight on right side. ) Skin General skin exam: no rashes or lesions noted Extrem General: pedal edema bilaterally pitting and 1+ Psych Appearance: grossly normal Speech and Movement: speech and movement normal Mood: congruent mood Affect: normal affect Attitude: cooperative Thought Process: normal Results Labs 02/09/25 16:07 02/09/25 16:26 Labs: Laboratory Results - last 24 hr 02/09/25 02/09/25 02/09/25 16:07 16:26 16:36 WBC 15.26 H RBC 3.66 L Hgb 9.4 L Hct 31.6 L MCV 86 MCH 25.7 L MCHC 29.7 L RDW 16.3 H Plt Count 311 MPV 9.1 Immature Gran % 2.8 Neutrophils % 74.3 Lymphocytes % 15.0 Monocytes % 6.2 Eosinophils % 1.2 Basophils % 0.5 Nucleated RBC % 0.5 H Absolute Neutrophils 11.34 H Absolute Lymphocytes 2.29 Absolute Monocytes 0.95 H Absolute Eosinophils 0.18 Absolute Basophils 0.08 VBG Lactate 1.3 Sodium 142 Potassium 3.9 Chloride 105 Carbon Dioxide 28.9 Anion Gap 8.1 BUN 11 Creatinine 0.52 L Est GFR (CKD-EPI 2020) 148.58 Glucose 95 Calcium 9.1 Total Bilirubin 0.4 AST 69 H ALT 57 H Alkaline Phosphatase 158 H Troponin I < 3 Total Protein 7.2 Albumin 4.1 Amylase 65 Lipase 31 TSH 2.33 Urine Color Urine Clarity Urine pH Ur Specific [place] Urine Protein Urine Ketones Urine Blood Urine Nitrite Urine Bilirubin Urine Urobilinogen Ur Leukocyte Esterase Urine RBC Urine WBC Ur Epithelial Cells Urine Crystals Urine Bacteria Urine Casts Urine Mucus Urine Other Ur Culture Indicated? Ur Random Creatinine U Random Total Protein U [place] Prot/Creat Ratio Urine Glucose Add-On Test Request 02/09/25 02/09/25 02/09/25 16:37 17:37 Unknown WBC RBC Hgb Hct MCV MCH MCHC RDW Plt Count MPV Immature Gran % Neutrophils % Lymphocytes % Monocytes % Eosinophils % Basophils % Nucleated RBC % Absolute Neutrophils Absolute Lymphocytes Absolute Monocytes Absolute Eosinophils Absolute Basophils VBG Lactate Sodium Potassium Chloride Carbon Dioxide Anion Gap BUN Creatinine Est GFR (CKD-EPI 2020) Glucose Calcium Total Bilirubin AST ALT Alkaline Phosphatase Troponin I Total Protein Albumin Amylase Lipase TSH Urine Color Yellow Cancelled Urine Clarity Clear Cancelled Urine pH 7.0 Cancelled Ur Specific [place] 1.020 Cancelled Urine Protein 30 H Cancelled Urine Ketones Trace H Cancelled Urine Blood Moderate H Cancelled Urine Nitrite Negative Cancelled Urine Bilirubin Negative Cancelled Urine Urobilinogen 0.2 Cancelled Ur Leukocyte Esterase Negative Cancelled Urine RBC 5-10 H Urine WBC 3-5 Ur Epithelial Cells Few Urine Crystals Negative Urine Bacteria Rare Urine Casts Negative Urine Mucus Heavy Urine Other Rare Transitional Ur Culture Indicated? C&S Done As Ordered Ur Random Creatinine 192.80 U Random Total Protein 35.4 H U [place] Prot/Creat Ratio 0.18 Urine Glucose Negative Cancelled Add-On Test Request Cancelled 02/09/25 Unknown WBC RBC Hgb Hct MCV MCH MCHC RDW Plt Count MPV Immature Gran % Neutrophils % Lymphocytes % Monocytes % Eosinophils % Basophils % Nucleated RBC % Absolute Neutrophils Absolute Lymphocytes Absolute Monocytes Absolute Eosinophils Absolute Basophils VBG Lactate Sodium Potassium Chloride Carbon Dioxide Anion Gap BUN Creatinine Est GFR (CKD-EPI 2020) Glucose Calcium Total Bilirubin AST ALT Alkaline Phosphatase Troponin I Total Protein Albumin Amylase Lipase TSH Urine Color Urine Clarity Urine pH Ur Specific [place] Urine Protein Urine Ketones Urine Blood Urine Nitrite Urine Bilirubin Urine Urobilinogen Ur Leukocyte Esterase Urine RBC Urine WBC Ur Epithelial Cells Urine Crystals Urine Bacteria Urine Casts Urine Mucus Urine Other Ur Culture Indicated? Ur Random Creatinine U Random Total Protein U [place] Prot/Creat Ratio Urine Glucose Add-On Test Request DONE Last Vital Signs Temp 99.3 F 02/09/25 16:10 Pulse 116 H 02/09/25 16:10 BP 128/76 02/09/25 17:54 VTE Prohylaxis Risk Level: Moderate/High Risk Contraindications: None Prophylaxis: Patient ambulatory Time Spent Time spent with Patient: <40 minutes Time was spent: preparing to see the patient(eg.review tests), obtaining and/or reviewing separately otained hiistory, ordering medications,tests, procedures, referring, communicating with other health healthcare administrator, indepentently interpreting results and counseling the patient
[2025-02-09] MEDS: Omnipaque 350 MG/ML 100 ML BTL IJ (21:40)
[2025-02-09] MEDS: Normal Saline - Diluent 50 ML VIAL IJ (21:40)
[2025-02-09] MEDS: Normal Saline Flush 10 ML SYR IVP (21:41)
--- NOTE | 2025-02-09 21:41 | DI.CT_ITS ---
Exam(s) CT ABDOMEN PELVIS WO EXAM: CT ABDOMEN PELVIS WO CLINICAL HISTORY: Right upper quadrant pain w/newfound transaminitis. TECHNIQUE: Imaging Protocol: Axial computed tomography images with coronal and sagittal reformatted images were created and reviewed CONTRAST MATERIAL: Intravenous: none Oral: None COMPARISON: US US OB > 14 WEEKS from 10/03/2024 FINDINGS: VISUALIZED LUNG BASES: No nodules nor pleural effusions evident. ABDOMEN: There is no ascites. LIVER: There are no obvious focal hepatic lesions evident of this noninfused study. GALLBLADDER/BILIARY: No obvious gallbladder pathology. CBD is not dilated. PANCREAS: No evidence of pancreatic mass nor dilatation of the pancreatic duct. SPLEEN: Spleen is not enlarged. No obvious intrasplenic lesions. ADRENALS: There are no significant adrenal masses. KIDNEYS:No cysts evident. No solid renal masses. No calculi nor hydronephrosis. . ABDOMINAL AORTA: Abdominal aorta is not enlarged. LYMPH NODES: There is no retroperitoneal nor paraaortic adenopathy. ABDOMINAL WALL: No evidence of significant anterior abdominal wall nor inguinal hernia. GI: There is no evidence of bowel obstruction, free air, nor abscess. PELVIS: LYMPH NODES: There is no intrapelvic nor inguinal adenopathy. GI: No evidence of appendicitis.No evidence of sigmoid diverticulitis. URINARY BLADDER: No calculi nor obvious masses evident REPRODUCTIVE: The uterus is significantly enlarged, most probably post . There is some dense material within the endometrial canal. There are no abnormal adnexal masses but there is abnormal streaking around the right gonadal vein. OSSEOUS: No significant osseous lesions. IMPRESSION: 1. Enlarged uterus; most probably post status. There is hyperdense material in the endometrial canal of possible significance such as retained products of conception. 2. The right gonadal vein is slightly prominent and there is some streaking around this vein. 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 There is also some mild streaking around the right ureter which is probably secondary from the adjacent gonadal vein issue. Preliminary virtual Radiology report was reviewed. RADIATION DOSE DELIVERED: 920.52mGy.cm Total DLP DATA REPOSITORY: All CT scans at this facility are submitted to the National Radiology Data Registry (NRDR) Dose Index Registry (DIR) with the [employer] (A[employer]). RADIATION OPTIMIZATION: All CT scans at this facility use at least one of these dose optimization techniques: automated exposure control; mA and/or kV adjustment per patient size (includes targeted exams where dose is matched to clinical indication); or iterative reconstruction.
[2025-02-09 22:11] LABS: COVID-19 PCR Negative (Negative); RSV PCR Negative (Negative)
--- NOTE | 2025-02-09 22:31 | DI.VRAD_ITS ---
PROCEDURE INFORMATION: Exam: CT Abdomen And Pelvis Without Contrast Exam date and time: 02/09/2025 8:34 PM Age: 19 years old Clinical indication: Abdominal pain; Localized; Right upper quadrant (ruq); Right upper quadrant pain w/newfound transaminitis. Patient gave on 02/06/25 TECHNIQUE: Imaging protocol: Computed tomography of the abdomen and pelvis without contrast. Radiation optimization: All CT scans at this facility use at least one of these dose optimization techniques: automated exposure control; mA and/or kV adjustment per patient size (includes targeted exams where dose is matched to clinical indication); or iterative reconstruction. COMPARISON: US OB > 14 WEEKS 10/03/2024 6:52 AM FINDINGS: Lungs: Lung bases are clear. Pleural spaces: No pleural effusion. Heart: Normal heart size. No pericardial effusion. No coronary artery atherosclerotic calcium. Liver: The liver is normal in size, contour and attenuation. Gallbladder and biliary ducts: The gallbladder is normal in size and shape. No stones or inflammatory changes. Gallbladder Phrygian cap morphology is incidentally noted. Pancreas: Normal. No ductal dilation. Spleen: The spleen is normal in size, contour and attenuation. Adrenal glands: Normal. No mass. Kidneys and ureters: Kidneys are unremarkable in size, contour, and attenuation. There is some contrast in the collecting systems from an additional CT with contrast. There is mild wall thickening of the right ureter adjacent to the inflamed umbilical vein. This is likely a secondary ureteral inflammation. Stomach and bowel: Unremarkable. No obstruction. No mucosal thickening. Appendix: No evidence of appendicitis. Intraperitoneal space: No free fluid. No free air. Vasculature: Right gonadal vein with hyperdense intrinsic contents and surrounding fatty stranding or inflammation. Can not exclude a right umbilical vein thrombosis. Left gonadal vein is not hyperdense and shows no adjacent inflammation. Right-sided abnormality is evident from series 5: Image 162 through 291. Also see coronal series 6: Image 40 for right-sided hyperdense gonadal vein. Lymph nodes: Unremarkable. No enlarged lymph nodes. Urinary bladder: Unremarkable as visualized. Reproductive: Prominently enlarged uterus. This is nonspecific. Please correlate clinically. This could be related to recent status. No uterine masslike change. No adnexal mass or dominant cyst. Bones/joints: Unremarkable. No acute fracture. Soft tissues: Small fat containing umbilical hernia. No acute features of strangulation. IMPRESSION: 1. Right gonadal vein is prominent and hyperdense which could represent right umbilical vein thrombosis. There is adjacent fatty stranding and inflammation. This might represent an gonadal vein thrombophlebitis. 2. Prominently enlarged uterus may represent status. Please correlate clinically. 3. Kidneys do contain some contrast in the collecting system. No acute inflammatory renal features or obstructive uropathy. Mild wall thickening and inflammatory type change of the distal right ureter adjacent to the inflamed region of right gonadal vein. This is likely a secondary process involving the ureter. 4. Urinary bladder is unremarkable. 5. No free fluid. No free air. 6. No biliary tract disease. 7. A non inflamed appendix is identified. Dictated and Authenticated by: Eduardo Valdez MD. Orderin Priscilla Vaca MD
[2025-02-09 23:00] VITALS: BP 126/89; PULSE 112; RESP 17; TEMP 36.8; O2SAT 97
[2025-02-10] MEDS: Ibuprofen 100 MG/5 ML CUP 400 MG PO ×4 (01:35→19:22)
[2025-02-10 01:47] VITALS: BP 132/91; PULSE 114; RESP 16; O2SAT 98
--- NOTE | 2025-02-10 04:24 | W.PM.PROGNOT ---
Date of Service Date of service: 02/10/25 Time of Service: 04:25 Assessment and Plan Assessment and plan (1) septic thrombophlebitis: Status: Acute Assessment and plan: 19-year-old -0-0-1 s/p 39-week performed 02/06/2025 - Rh +/ Rub I/ VZV NI / GBS negative - complicated by hypothyroidism (well-controlled), external hemorrhoids, extensive history of trauma - Intrapartum course reportedly uncomplicated; of note, I understand the second-degree perineal was not repaired at the time of delivery based on patient intolerance, good approximation, hemostasis, and clinical stability - course reportedly uncomplicated - Meeting all appropriate milestones - Lochia appropriate - Breast-feeding without issue - Contraceptive planning: Pending - Last Pap smear pending - depression counseling pending - - - - - - - - - - - - - - - - - 02/09/2025 (Prs[place]illa): Patient presented for routine evaluation following reportedly uncomplicated vaginal delivery from 3 days ago. Blood work appears stable and vital signs are appropriate outside of the mild, asymptomatic tachycardia. CMP drawn today reveals mild transaminitis; this is of note given the patient's right upper quadrant discomfort. However, she exhibits no signs or symptoms and has no clinical concerns for preeclampsia. Blood pressures were reassessed with manual blood pressure cuff and consistent with automated recordings. I do not find evidence of concerns for infection/sepsis; however, I do feel as though she warrants prolonged monitoring and further workup. Patient strongly advised to hydrate; she is tolerating orals, and she is provided with oral hydration. She does endorse a significant history of reflux; the patient is unable to tolerate pills. Goddess cocktail provided to assess for any relief of discomfort and liquid Pepcid prescribed for prolonged control. Right upper quadrant ultrasound ordered for assessment of transaminitis in the setting of right upper quadrant pain, and labs ordered for repeat with additional labs for ruling out other potential etiologies to be drawn at the same time. COVID testing also ordered, of note, patient denies any alcohol use and history is not concerning for substance use disorder. We will monitor with serial blood pressures overnight and reassess her clinical status in the morning. I do not feel magnesium therapy is warranted at this time as I do not find evidence of preeclampsia. TSH added onto [employer]'s bloodwork. 02/10/2025 (Priscilla): Patient remains mildly tachycardic in the 110s, though asymptomatic. She recently voided 800 cc. She denies any sensation of clinical status change. 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 Patient has not had undulating fevers; however, she has had a persistent, mild elevation in her white count, and she did receive a total of 800 mg of Motrin earlier in the evening which could be masking development of any kind of fever. She was noted to have a temperature just over 99 F on admission. I discussed the finding with the patient as well as my concern for her persistent tachycardia. We will proceed with antibiotics and anticoagulation though I do not feel as though this diagnosis fully explains her picture given the elevated AST and ALT which would be unexplained by septic pelvic thrombophlebitis. Of note, her blood pressures have a modestly increased with diastolics occasionally in the 90s, though rechecks have largely been normal and her systolic blood pressures have been normal.Of note, patient has had 2 traumatic IV placements; 1 immediately during IV iron infusions during which her IV infiltrated and caused her notable discomfort, the second 1 in the other arm where her IV infiltrated during administration of IV contrast, today. (Hence imaging without IV contrast). Patient is reasonably hesitant about the idea of an IV; however, I did discuss my concerns given her persistent tachycardia in the setting of a persistent white count. I would like to administer IV antibiotics (for the diagnosis of the septic pelvic thrombophlebitis. Patient is willing to have anesthesia evaluate for possible IV placement. - - - - - - - - - - - - - - - - - (2) Tachycardia: Status: Acute (3) Transaminitis: Status: Acute (4) Hypothyroidism: Status: Chronic (5) Anemia, : Status: Acute Exam Narrative Exam Narrative: General: Well-nourished female in no immediate distress Pulm: No overt respiratory distress; able to speak in complete sentences Abdomen: Nondistended Extremities: Stable Psych: Cooperative, appropriate Objective Last Vital Signs Temp 98.2 F 02/09/25 23:00 Pulse 114 H 02/10/25 01:47 Resp 16 02/10/25 01:47 BP 132/91 H 02/10/25 01:47 Pulse Ox 98 02/10/25 01:47 Laboratory Results - last 24 hr 02/09/25 02/09/25 02/09/25 16:07 16:26 16:36 WBC 15.26 H RBC 3.66 L Hgb 9.4 L Hct 31.6 L MCV 86 MCH 25.7 L MCHC 29.7 L RDW 16.3 H Plt Count 311 MPV 9.1 Immature Gran % 2.8 Neutrophils % 74.3 Lymphocytes % 15.0 Monocytes % 6.2 Eosinophils % 1.2 Basophils % 0.5 Nucleated RBC % 0.5 H Absolute Neutrophils 11.34 H Absolute Lymphocytes 2.29 Absolute Monocytes 0.95 H Absolute Eosinophils 0.18 Absolute Basophils 0.08 VBG Lactate 1.3 Sodium 142 Potassium 3.9 Chloride 105 Carbon Dioxide 28.9 Anion Gap 8.1 BUN 11 Creatinine 0.52 L Est GFR (CKD-EPI 2020) 148.58 Glucose 95 Calcium 9.1 Total Bilirubin 0.4 AST 69 H ALT 57 H Alkaline Phosphatase 158 H Troponin I < 3 Total Protein 7.2 Albumin 4.1 Amylase 65 Lipase 31 TSH 2.33 Urine Color Urine Clarity Urine pH Ur Specific [place] Urine Protein Urine Ketones Urine Blood Urine Nitrite Urine Bilirubin Urine Urobilinogen Ur Leukocyte Esterase Urine RBC Urine WBC Ur Epithelial Cells Urine Crystals Urine Bacteria Urine Casts Urine Mucus Urine Other Ur Culture Indicated? Ur Random Creatinine U Random Total Protein U [place] Prot/Creat Ratio Urine Glucose COVID-19 Source SARS-CoV-2 (PCR) Influenza Type A (PCR) Influenza Type B (PCR) RSV (PCR) Add-On Test Request 02/09/25 02/09/25 02/09/25 16:37 17:37 19:53 WBC RBC Hgb Hct MCV MCH MCHC RDW Plt Count MPV Immature Gran % Neutrophils % Lymphocytes % Monocytes % Eosinophils % Basophils % Nucleated RBC % Absolute Neutrophils Absolute Lymphocytes Absolute Monocytes Absolute Eosinophils Absolute Basophils VBG Lactate Sodium Potassium Chloride Carbon Dioxide Anion Gap BUN Creatinine Est GFR (CKD-EPI 2020) Glucose Calcium Total Bilirubin AST ALT Alkaline Phosphatase Troponin I Total Protein Albumin Amylase Lipase TSH Urine Color Yellow Cancelled Urine Clarity Clear Cancelled Urine pH 7.0 Cancelled Ur Specific [place] 1.020 Cancelled Urine Protein 30 H Cancelled Urine Ketones Trace H Cancelled Urine Blood Moderate H Cancelled Urine Nitrite Negative Cancelled Urine Bilirubin Negative Cancelled Urine Urobilinogen 0.2 Cancelled Ur Leukocyte Esterase Negative Cancelled Urine RBC 5-10 H Urine WBC 3-5 Ur Epithelial Cells Few Urine Crystals Negative Urine Bacteria Rare Urine Casts Negative Urine Mucus Heavy Urine Other Rare Transitional Ur Culture Indicated? C&S Done As Ordered Ur Random Creatinine 192.80 U Random Total Protein 35.4 H U [place] Prot/Creat Ratio 0.18 Urine Glucose Negative Cancelled COVID-19 Source Nasopharynx SARS-CoV-2 (PCR) Negative Influenza Type A (PCR) Negative Influenza Type B (PCR) Negative RSV (PCR) Negative Add-On Test Request 02/09/25 02/09/25 Unknown Unknown WBC RBC Hgb Hct MCV MCH MCHC RDW Plt Count MPV Immature Gran % Neutrophils % Lymphocytes % Monocytes % Eosinophils % Basophils % Nucleated RBC % Absolute Neutrophils Absolute Lymphocytes Absolute Monocytes Absolute Eosinophils Absolute Basophils VBG Lactate Sodium Potassium Chloride Carbon Dioxide Anion Gap BUN Creatinine Est GFR (CKD-EPI 2020) Glucose Calcium Total Bilirubin AST ALT Alkaline Phosphatase Troponin I Total Protein Albumin Amylase Lipase TSH Urine Color Urine Clarity Urine pH Ur Specific [place] Urine Protein Urine Ketones Urine Blood Urine Nitrite Urine Bilirubin Urine Urobilinogen Ur Leukocyte Esterase Urine RBC Urine WBC Ur Epithelial Cells Urine Crystals Urine Bacteria Urine Casts Urine Mucus Urine Other Ur Culture Indicated? Ur Random Creatinine U Random Total Protein U [place] Prot/Creat Ratio Urine Glucose COVID-19 Source SARS-CoV-2 (PCR) Influenza Type A (PCR) Influenza Type B (PCR) RSV (PCR) Add-On Test Request Cancelled DONE VTE Prohylaxis Risk Level: Moderate/High Risk Contraindications: None Prophylaxis: Patient ambulatory Time Spent with Patient Time Spent with Patient: 25-34 minutes Time was spent: preparing to see the patient(eg.review tests), obtaining and/or reviewing separately otained hiistory, ordering medications,tests, procedures, referring, communicating with other health critical care nurse, indepentently interpreting results, counseling the patient and care coordination
--- NOTE | 2025-02-10 04:46 | W.ANESVAS ---
Peripheral IV Placement Date Performed: 02/10/25 Procedure Time: 04:30 Requesting Provider: Nola Wells Procedure Location: Obstetrics Sedation Given (Indicate Dose Given): No Sedation given Patient Mental Status: Awake Laterality: Right Insertion Site: Forearm Size & Type: 20 ga. Dressing: IV Dressing Placed Ultrasound: Not Used Number of Attempts (See previous attempts in note section): 2 Procedure Tolerated: No Complications and Patient tolerated well Procedure Outcome: Successful Procedure Comment: Attempted left hand. Unable to advance in vein. Attempt X1 in right forearm successful. Both upper arms R&L have swelling from infiltrated prior IV's placed in AC's. Bear Oswald CRNA Performed By: Riley Oswald
[2025-02-10 05:39] LABS: Abs Immature Grans 0.41 10^3/uL (0.0-0.06); HCT 30.3 % (36.0-46.0); HGB 9.1 g/dL (11.2-15.7); Immature Grans % 3.6 %; MCH 25.9 pg (27.0-33.0); MCHC 30.0 % (32.0-36.0); MCV 86 fL (80-95); MPV 9.3 fL (8.0-11.0); Platelet Count 296 10^3/uL (130-400); RBC 3.51 10^6/uL (3.93-5.22); RDW 16.8 % (11.7-14.6); RDW-SD 50.7 fL; WBC 11.35 10^3/uL (4.4-10.8)
[2025-02-10] MEDS: PIPERACILLIN/TAZO 3.375 GM in Normal Saline 50 ML IVPB ×2 (05:45→12:03)
[2025-02-10 05:49] LABS: INR 0.9 (0.9-1.1); Prothrombin Time 8.9 sec (9.1-11.1)
[2025-02-10] MEDS: Enoxaparin 40 MG/0.4 ML SYR SC ×2 (05:50→19:06)
[2025-02-10 06:00] LABS: ALT 62 U/L (10-49); AST 59 U/L (<34); Albumin 3.7 g/dL (3.2-5.0); Alkaline Phosphatase 139 U/L (46-116); Anion Gap 7.8 mmol/L (3-11); BUN 9 mg/dL (9-23); Bilirubin, Direct 0.1 mg/dL (<=0.3); Bilirubin, Total 0.5 mg/dL (0.2-1.2); CO2 25.2 mmol/L (20.0-31.0); Calcium 8.6 mg/dL (8.3-10.6); Chloride 108 mmol/L (98-107); GGT 15 U/L (<38); Glucose 83 mg/dL (74-106); LDH 261 U/L (120-246); Potassium 3.9 mmol/L (3.5-5.1); Sodium 141 mmol/L (136-145); Total Protein 6.6 g/dL (5.7-8.2)
[2025-02-10 07:06] VITALS: BP 125/93; PULSE 102; RESP 16; TEMP 36.8; O2SAT 96
[2025-02-10 09:50] VITALS: BP 123/92; PULSE 103; RESP 16; TEMP 36.8; O2SAT 97
[2025-02-10 12:07] VITALS: BP 120/76; PULSE 115; RESP 18; TEMP 36.8; O2SAT 99
--- NOTE | 2025-02-10 12:38 | MCONE_ITS ---
Date of service: 02/10/25 Time of Service: 08:00 Assessment and Plan Assessment and plan (1) Tachycardia: Status: Acute Assessment and plan: EKG showing tachycardia and sinus rhythm, no evident defect Troponin negative, renal function intact. No lactic acidosis. Pain seems to be well controlled on non-narcotics Patient seems to have been tachycardic since prior to delivery of baby Overnight, LFTs improved and WBC is lower but still elevated. Tachycardia persists above 120 intermittently, including while she is asleep Low risk for PE using PESI however suspicion is increased in this woman She had multiple PIVs infiltrate and was not able to tolerate IV contrast for CTA chest She has been started on enoxaparin for VTE prophylaxis for septic thrombophlebitis Discussed with Dr Wells. HELLP considered, pre-eclampsia considered. In lieu of CTA, will treat presumptive PE Will need to be on therapeutic dose of LMWH. Provoked PE treatment duration is 3 months. Patient will followup with OB and may have VQ scan Wednesday in order to reduce dose/duration of LMWH. Consider anti-phospholipid antibody testing. (2) Transaminitis: Status: Acute Assessment and plan: AST and ALT less than 3x normal ALP down from delivery 194->158->139 Coag panel showing intact organic function Recommend repeat CMP at next followup to ensure resolution (3) septic thrombophlebitis: Status: Acute Assessment and plan: Gonadal vein showed possible thrombus on CT imaging Patient is on antibiotics and LMWH History of Present Illness History of Present Illness Chief Complaint: leg swelling Narrative: Alannah Ignacio is a 19 year old woman presenting February 09 with foot swelling, upper abdominal discomfort and back pain. She delivered a healthy baby boy on February 06 via and is . She was sent in from her check; she would not have come in for her symptoms otherwise as she considered them mild. She was found to be tachycardic HR to 128, with new transaminitis and elevated lactate dehydrogenase, and neutrophilic leukocytosis with WBC 15.26. CT of the abdomen and pelvis was suggestive of gonadal vein thrombus and treatment was initiated for septic thrombophlebitis including enoxaparin and pip-tazo. Medicine consulted for persistent tachycardia. PFSH All Active Problems (Updated 02/10/25 @ 04:28 by Nola Wells DO) septic thrombophlebitis (Acute) Elevated liver enzymes (Acute) Vaginal delivery (Acute) Tachycardia (Acute) Transaminitis (Acute) Anemia, (Acute) Term delivered (Acute) Maternal varicella, non-immune (Acute) Hemorrhoids during in third trimester (Acute) History of PCOS (Acute) Hypothyroidism (Chronic) (Acute) G1, P0 late transfer of care at 36 weeks. GC negative hepatitis negative slic hepatitis C negative HIV negative RPR negative rubella immune. care initially at [facility]. Normal 20-week ultrasound, a positive, 1 hour glucose tolerance test normal at 92 Medical History Spontaneous onset of labor Thrombosed external hemorrhoid Family History Father , 50 Heart disease Amyloidosis Diabetes Hypertension Maternal Grandmother Family history of alpha 1 antitrypsin deficiency Mother Cystic fibrosis Social History Smoking/Tobacco Use Status: Never Smoking risk assessment performed?: Yes Alcohol Intake: never Drug use: Never Substance use type: does not use Do you feel safe at home: Yes Do you feel safe in your relationship?: Yes History History 2 1 Para 0 Hx # Term Pregnancies Multiple births Hx # Pregnancies Ectopic pregnancies AB induced Hx Number of Living Children 0 AB spontaneous Exam Narrative Exam Narrative: General: This is a pleasant woman in no distress. Family at bedside. HEENT: Normocephalic, atraumatic CV: Tachycardic, regular rhythm. Systolic murmur 2/6. Resp: CTAB Abd: soft, appropriately tender in both lower quadrants, diffuse bilateral epigastric tenderness, negative Centeno's sign MSK: voluntary motion x4 Neuro: awake, alert, no focal deficits Results Last Vital Signs Temp 36.8 C 02/10/25 12:07 Pulse 115 H 02/10/25 12:07 Resp 18 02/10/25 12:07 BP 120/76 02/10/25 12:07 Pulse Ox 99 02/10/25 12:07 Labs 02/10/25 05:10 02/10/25 05:10 Labs: Laboratory Results - last 24 hr 1202/09/25 02/09/25 16:07 16:26 16:36 WBC 15.26 H RBC 3.66 L Hgb 9.4 L Hct 31.6 L MCV 86 MCH 25.7 L MCHC 29.7 L RDW 16.3 H Plt Count 311 MPV 9.1 Immature Gran % 2.8 Neutrophils % 74.3 Lymphocytes % 15.0 Monocytes % 6.2 Eosinophils % 1.2 Basophils % 0.5 Nucleated RBC % 0.5 H Absolute Neutrophils 11.34 H Absolute Lymphocytes 2.29 Absolute Monocytes 0.95 H Absolute Eosinophils 0.18 Absolute Basophils 0.08 PT INR VBG Lactate 1.3 Sodium 142 Potassium 3.9 Chloride 105 Carbon Dioxide 28.9 Anion Gap 8.1 BUN 11 Creatinine 0.52 L Est GFR (CKD-EPI 2020) 148.58 Glucose 95 Calcium 9.1 Total Bilirubin 0.4 Conjugated Bilirubin GGT AST 69 H ALT 57 H Alkaline Phosphatase 158 H Lactate Dehydrogenase Troponin I < 3 Total Protein 7.2 Albumin 4.1 Amylase 65 Lipase 31 TSH 2.33 Urine Color Urine Clarity Urine pH Ur Specific [place] Urine Protein Urine Ketones Urine Blood Urine Nitrite Urine Bilirubin Urine Urobilinogen Ur Leukocyte Esterase Urine RBC Urine WBC Ur Epithelial Cells Urine Crystals Urine Bacteria Urine Casts Urine Mucus Urine Other Ur Culture Indicated? Ur Random Creatinine U Random Total Protein U [place] Prot/Creat Ratio Urine Glucose COVID-19 Source SARS-CoV-2 (PCR) Influenza Type A (PCR) Influenza Type B (PCR) RSV (PCR) Add-On Test Request 02/09/25 02/09/25 02/09/25 16:37 17:37 19:53 WBC RBC Hgb Hct MCV MCH MCHC RDW Plt Count MPV Immature Gran % Neutrophils % Lymphocytes % Monocytes % Eosinophils % Basophils % Nucleated RBC % Absolute Neutrophils Absolute Lymphocytes Absolute Monocytes Absolute Eosinophils Absolute Basophils PT INR VBG Lactate Sodium Potassium Chloride Carbon Dioxide Anion Gap BUN Creatinine Est GFR (CKD-EPI 2020) Glucose Calcium Total Bilirubin Conjugated Bilirubin GGT AST ALT Alkaline Phosphatase Lactate Dehydrogenase Troponin I Total Protein Albumin Amylase Lipase TSH Urine Color Yellow Cancelled Urine Clarity Clear Cancelled Urine pH 7.0 Cancelled Ur Specific [place] 1.020 Cancelled Urine Protein 30 H Cancelled Urine Ketones Trace H Cancelled Urine Blood Moderate H Cancelled Urine Nitrite Negative Cancelled Urine Bilirubin Negative Cancelled Urine Urobilinogen 0.2 Cancelled Ur Leukocyte Esterase Negative Cancelled Urine RBC 5-10 H Urine WBC 3-5 Ur Epithelial Cells Few Urine Crystals Negative Urine Bacteria Rare Urine Casts Negative Urine Mucus Heavy Urine Other Rare Transitional Ur Culture Indicated? C&S Done As Ordered Ur Random Creatinine 192.80 U Random Total Protein 35.4 H U [place] Prot/Creat Ratio 0.18 Urine Glucose Negative Cancelled COVID-19 Source Nasopharynx SARS-CoV-2 (PCR) Negative Influenza Type A (PCR) Negative Influenza Type B (PCR) Negative RSV (PCR) Negative Add-On Test Request 02/09/25 02/09/25 02/10/25 Unknown Unknown 05:10 WBC 11.35 H RBC 3.51 L Hgb 9.1 L Hct 30.3 L MCV 86 MCH 25.9 L MCHC 30.0 L RDW 16.8 H Plt Count 296 MPV 9.3 Immature Gran % 3.6 Neutrophils % 68.2 Lymphocytes % 19.0 Monocytes % 7.0 Eosinophils % 1.4 Basophils % 0.8 Nucleated RBC % 0.4 H Absolute Neutrophils 7.74 H Absolute Lymphocytes 2.16 Absolute Monocytes 0.79 Absolute Eosinophils 0.16 Absolute Basophils 0.09 PT 8.9 L INR 0.9 VBG Lactate Sodium 141 Potassium 3.9 Chloride 108 H Carbon Dioxide 25.2 Anion Gap 7.8 BUN 9 Creatinine 0.50 L Est GFR (CKD-EPI 2020) 155.46 Glucose 83 Calcium 8.6 Total Bilirubin 0.5 Conjugated Bilirubin 0.1 GGT 15 AST 59 H ALT 62 H Alkaline Phosphatase 139 H Lactate Dehydrogenase 261 H Troponin I Total Protein 6.6 Albumin 3.7 Amylase Lipase TSH Urine Color Urine Clarity Urine pH Ur Specific [place] Urine Protein Urine Ketones Urine Blood Urine Nitrite Urine Bilirubin Urine Urobilinogen Ur Leukocyte Esterase Urine RBC Urine WBC Ur Epithelial Cells Urine Crystals Urine Bacteria Urine Casts Urine Mucus Urine Other Ur Culture Indicated? Ur Random Creatinine U Random Total Protein U [place] Prot/Creat Ratio Urine Glucose COVID-19 Source SARS-CoV-2 (PCR) Influenza Type A (PCR) Influenza Type B (PCR) RSV (PCR) Add-On Test Request Cancelled DONE
[2025-02-10 15:00] VITALS: BP 127/86; PULSE 93; RESP 20; TEMP 36.8; O2SAT 99
--- NOTE | 2025-02-10 17:35 | DSE_ITS ---
Date of service: 02/10/25 Time of Service: 17:35 DS: Diagnosis Discharge Diagnosis (1) Tachycardia: Status: Acute (2) Transaminitis: Status: Acute (3) septic thrombophlebitis: Status: Acute Discharge Plan Disposition Condition: Good Condition: Good Discharge Details Reason For Visit: elevated liver enzymes, edema Admit Date/Time: 02/09/25 17:30 Admit Provider: Alice Ernandez Attending Provider: Alice Ernandez Primary Care Provider: Alice Ernandez Hospital Course Hospital Course: 19-year-old -0-0-1 status post 39-week performed 02/06/2025 presented for routine evaluation following reportedly uncomplicated vaginal delivery from 3 days prior. Midwives were concerned for persistent white count; therefore, blood work was collected on the day that she presented to labor and delivery. An incidental discovery of transaminitis was noted (AST if 69, ALT of 57); however, no concerning evidence of preeclampsia, infection, or overt liver pathology was appreciated. CT scan without contrast was performed (no contrast due to infiltration of her IV precluding appropriate administration of IV contrast. Of note, this was the second time this patient had an IV infiltrate on her and caused her significant arm pain) and did not identify any overt liver pathology. 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 This led to the diagnosis of septic pelvic thrombophlebitis for which she was started on 40 mg of Lovenox twice daily as well as piperacillin - Tazo. She had a persistent, asymptomatic tachycardia in the 110s despite adequate hydration over the course of her stay. Concerns were raised for possible PE, and an attempt was made to get a CT PE for diagnosis. However, the IV that was successfully placed on the patient was deemed insufficient for administration of IV contrast. Therefore, after discussing this with the patient, it was decided the patient will go home with therapeutic dosing of Lovenox and follow-up next week for consideration of VQ scan outpatient. Over the course of her stay, Ms. Ignacio remained clinically stable. There was no concerning evidence of preeclampsia, infection, or any other concerning/suggestive pathologies that could explain her collection of symptoms and/or warrant further inpatient workup. Her liver enzymes remained modestly elevated and she was noted to have a modest elevation in LDH; however, in discussing this with internists, it was decided this is likely related to a mild transient, subclinical acute liver inflammation, and it was reassuring that she did not show any signs of decompensation or further concerns. Her white count did trend down over the course of her stay and hemoglobin remained stable as well as platelets and preeclampsia labs. Patient was discharged with instructions for close follow-up in the office, and she was advised to have a low threshold for seeking immediate medical reevaluation if any concerning signs or symptoms arise. Home Meds and New Rx's Prescriptions: New enoxaparin [Lovenox] 80 mg/0.8 mL syringe 86 mg subcut Q12H 30 Days Qty: 51.6 2RF metronidazole 500 mg tablet 500 mg PO Q12H 7 Days Qty: 14 0RF cephalexin 500 mg capsule 500 mg PO Q8H 7 Days Qty: 21 0RF No Action lidocaine HCl 4 % gel 1 applic topical BID-QID PRN (Reason: pain) Qty: 118 2RF hydrocortisone acetate [Anusol-HC] 25 mg suppository 25 mg VT DAILY Qty: 12 0RF multivitamin Tablet 1 tab PO DAILY Discharge Instructions Instructions: Pulmonary Embolism (Blood Clot in the Lungs) (DC), Phlebitis (DC) Additional Instructions: ? Eat a well-rounded diet ? Ambulate regularly and engage in light activity while avoiding repeated heavy lifting (over 10 pounds) ? Take your medications as prescribed ? Please be sure to attend your follow-up visits ? If you have an incision, be sure to keep it clean and dry using simple soap and water; avoid scrubbing to avoid damage to suture ? If you have been prescribed narcotics such as tramadol or oxycodone or [place], please note these medications have an addictive potential and should be used s paringly. Please discard of any leftover medication either with your local pharmacy or by flushing the medication. Do not share these medications with other individuals, and have a low threshold for seeking immediate medical evaluation if you experience any sleepiness, headaches, or any other concerns while using these medications. ? Please do not insert anything vaginally, including but not limited to, tampons, douching, or sexual intercourse, for a full 8 weeks and/or until you are medically cleared. ? If you have any concerns including fevers/chills, lightheadedness, visual changes, persistent headaches unresponsive to Tylenol, persistent nausea/vomiting, persistent abdominal pain, bruising and or leakage from your incision sites, excessive vaginal bleeding, or any other concerns, please have a low threshold for seeking immediate medical evaluation and/or reaching out to our clinic at [phone]. ? If you find yourself having crying spells you cannot explain, loss of appetite, persistent inability to sleep, lack of bonding with your baby, and/or general and persistent sadness, please feel free to reach out to our clinic immediately at [phone]. Lovenox injections twice daily Oral Keflex 3 times a day Metronidazole twice a day Follow up in the office this coming week for further workup and management of PE (VQ scan to be discussed) Activity:: Pelvic rest Activity:: Pelvic rest Equipment/Supplies:: No Equipment Needed Diet:: Normal Diet Discharge Data Discharge Physician: Nola Wells OB:DS Summary Contraception Discussed Contraception Discussed: No, Status at Discharge Functional status at discharge: independent ambulation Overall status at discharge: patient is progressing back to baseline Mental Status: mental status grossly normal Speech and Movement: speech and movement normal Mood: congruent mood Affect: normal affect Exam Physical Exam Vital signs: Temp Pulse Resp BP Pulse Ox 98.2 F 115 H 18 120/76 99 02/10/25 12:07 02/10/25 12:07 02/10/25 12:07 02/10/25 12:07 02/10/25 12:07 PFSH All Active Problems (Updated 02/10/25 @ 04:28 by Nola Wells DO) septic thrombophlebitis (Acute) Elevated liver enzymes (Acute) Vaginal delivery (Acute) Tachycardia (Acute) Transaminitis (Acute) Anemia, (Acute) Term delivered (Acute) Maternal varicella, non-immune (Acute) Hemorrhoids during in third trimester (Acute) History of PCOS (Acute) Hypothyroidism (Chronic) (Acute) G1, P0 late transfer of care at 36 weeks. GC negative hepatitis negative slic hepatitis C negative HIV negative RPR negative rubella immune. care initially at [facility]. Normal 20-week ultrasound, a positive, 1 hour glucose tolerance test normal at 92 Medical History Spontaneous onset of labor Thrombosed external hemorrhoid Family History Father , 50 Heart disease Amyloidosis Diabetes Hypertension Maternal Grandmother Family history of alpha 1 antitrypsin deficiency Mother Cystic fibrosis Social History Smoking/Tobacco Use Status: Never Smoking risk assessment performed?: Yes Alcohol Intake: never Drug use: Never Substance use type: does not use Do you feel safe at home: Yes Do you feel safe in your relationship?: Yes History History 1 Para 0 Hx # Term Pregnancies Multiple births Hx # Pregnancies Ectopic pregnancies AB induced Hx Number of Living Children 0 AB spontaneous DS: Data Vitals/I&O Vitals and I&O: Vital Signs Temperature 98.2 F 02/10/25 12:07 Temperature Source Oral 02/10/25 12:07 Temperature Source Oral 02/09/25 16:10 Pulse 115 H 02/10/25 12:07 Pulse Rhythm Regular 02/10/25 07:53 Respiratory Rate 18 02/10/25 12:07 Blood Pressure 120/76 02/10/25 12:07 Blood Pressure Mean 90 02/10/25 12:07 Pulse Oximetry 99 02/10/25 12:07 Oxygen Delivery Method Room Air 02/10/25 12:07 Oxygen Flow Rate 0 02/10/25 12:07 Pain Level 3 02/10/25 12:07 Comment BP taken in left forearm d/t infiltrated IV sites. 02/10/25 09:50 Intake & Output 02/09/25 02/10/25 02/10/25 23:59 11:59 23:59 Intake Total 230 / 230 Output Total 800 / 800 Balance -570 / -570 Weight 189 lb Intake: IV 50 / 50 Oral 180 / 180 Output: Urine 800 / 800 Other: Urine Color Yellow Yellow Data Completed and Pending Pending Labs at Discharge: 02/09/25 02/09/25 02/09/25 16:07 16:26 16:36 WBC 15.26 H RBC 3.66 L Hgb 9.4 L Hct 31.6 L MCV 86 MCH 25.7 L MCHC 29.7 L RDW 16.3 H Plt Count 311 MPV 9.1 Immature Gran % 2.8 Neutrophils % 74.3 Lymphocytes % 15.0 Monocytes % 6.2 Eosinophils % 1.2 Basophils % 0.5 Nucleated RBC % 0.5 H Absolute Neutrophils 11.34 H Absolute Lymphocytes 2.29 Absolute Monocytes 0.95 H Absolute Eosinophils 0.18 Absolute Basophils 0.08 PT INR APTT LA dRVVT Screen Ratio LA Technical Interp VBG Lactate 1.3 Sodium 142 Potassium 3.9 Chloride 105 Carbon Dioxide 28.9 Anion Gap 8.1 BUN 11 Creatinine 0.52 L Est GFR (CKD-EPI 2020) 148.58 Glucose 95 Calcium 9.1 Total Bilirubin 0.4 Conjugated Bilirubin GGT AST 69 H ALT 57 H Alkaline Phosphatase 158 H Lactate Dehydrogenase Troponin I < 3 Total Protein 7.2 Albumin 4.1 Amylase 65 Lipase 31 TSH 2.33 Urine Color Urine Clarity Urine pH Ur Specific [place] Urine Protein Urine Ketones Urine Blood Urine Nitrite Urine Bilirubin Urine Urobilinogen Ur Leukocyte Esterase Urine RBC Urine WBC Ur Epithelial Cells Urine Crystals Urine Bacteria Urine Casts Urine Mucus Urine Other Ur Culture Indicated? Ur Random Creatinine U Random Total Protein U [place] Prot/Creat Ratio Urine Glucose Beta-2 GPI IgG Ab Beta-2 GPI IgM Ab Phospholipid IgG Ab Phospholipid IgM Ab COVID-19 Source SARS-CoV-2 (PCR) Influenza Type A (PCR) Influenza Type B (PCR) RSV (PCR) Add-On Test Request 02/09/25 02/09/25 02/09/25 16:37 17:37 19:53 WBC RBC Hgb Hct MCV MCH MCHC RDW Plt Count MPV Immature Gran % Neutrophils % Lymphocytes % Monocytes % Eosinophils % Basophils % Nucleated RBC % Absolute Neutrophils Absolute Lymphocytes Absolute Monocytes Absolute Eosinophils Absolute Basophils PT INR APTT LA dRVVT Screen Ratio LA Technical Interp VBG Lactate Sodium Potassium Chloride Carbon Dioxide Anion Gap BUN Creatinine Est GFR (CKD-EPI 2020) Glucose Calcium Total Bilirubin Conjugated Bilirubin GGT AST ALT Alkaline Phosphatase Lactate Dehydrogenase Troponin I Total Protein Albumin Amylase Lipase TSH Urine Color Yellow Cancelled Urine Clarity Clear Cancelled Urine pH 7.0 Cancelled Ur Specific [place] 1.020 Cancelled Urine Protein 30 H Cancelled Urine Ketones Trace H Cancelled Urine Blood Moderate H Cancelled Urine Nitrite Negative Cancelled Urine Bilirubin Negative Cancelled Urine Urobilinogen 0.2 Cancelled Ur Leukocyte Esterase Negative Cancelled Urine RBC 5-10 H Urine WBC 3-5 Ur Epithelial Cells Few Urine Crystals Negative Urine Bacteria Rare Urine Casts Negative Urine Mucus Heavy Urine Other Rare Transitional Ur Culture Indicated? C&S Done As Ordered Ur Random Creatinine 192.80 U Random Total Protein 35.4 H U [place] Prot/Creat Ratio 0.18 Urine Glucose Negative Cancelled Beta-2 GPI IgG Ab Beta-2 GPI IgM Ab Phospholipid IgG Ab Phospholipid IgM Ab COVID-19 Source Nasopharynx SARS-CoV-2 (PCR) Negative Influenza Type A (PCR) Negative Influenza Type B (PCR) Negative RSV (PCR) Negative Add-On Test Request 02/09/25 02/09/25 02/10/25 Unknown Unknown 05:10 WBC 11.35 H RBC 3.51 L Hgb 9.1 L Hct 30.3 L MCV 86 MCH 25.9 L MCHC 30.0 L RDW 16.8 H Plt Count 296 MPV 9.3 Immature Gran % 3.6 Neutrophils % 68.2 Lymphocytes % 19.0 Monocytes % 7.0 Eosinophils % 1.4 Basophils % 0.8 Nucleated RBC % 0.4 H Absolute Neutrophils 7.74 H Absolute Lymphocytes 2.16 Absolute Monocytes 0.79 Absolute Eosinophils 0.16 Absolute Basophils 0.09 PT 8.9 L INR 0.9 APTT LA dRVVT Screen Ratio LA Technical Interp VBG Lactate Sodium 141 Potassium 3.9 Chloride 108 H Carbon Dioxide 25.2 Anion Gap 7.8 BUN 9 Creatinine 0.50 L Est GFR (CKD-EPI 2020) 155.46 Glucose 83 Calcium 8.6 Total Bilirubin 0.5 Conjugated Bilirubin 0.1 GGT 15 AST 59 H ALT 62 H Alkaline Phosphatase 139 H Lactate Dehydrogenase 261 H Troponin I Total Protein 6.6 Albumin 3.7 Amylase Lipase TSH Urine Color Urine Clarity Urine pH Ur Specific [place] Urine Protein Urine Ketones Urine Blood Urine Nitrite Urine Bilirubin Urine Urobilinogen Ur Leukocyte Esterase Urine RBC Urine WBC Ur Epithelial Cells Urine Crystals Urine Bacteria Urine Casts Urine Mucus Urine Other Ur Culture Indicated? Ur Random Creatinine U Random Total Protein U [place] Prot/Creat Ratio Urine Glucose Beta-2 GPI IgG Ab Beta-2 GPI IgM Ab Phospholipid IgG Ab Phospholipid IgM Ab COVID-19 Source SARS-CoV-2 (PCR) Influenza Type A (PCR) Influenza Type B (PCR) RSV (PCR) Add-On Test Request Cancelled DONE 02/10/25 Unknown WBC RBC Hgb Hct MCV MCH MCHC RDW Plt Count MPV Immature Gran % Neutrophils % Lymphocytes % Monocytes % Eosinophils % Basophils % Nucleated RBC % Absolute Neutrophils Absolute Lymphocytes Absolute Monocytes Absolute Eosinophils Absolute Basophils PT Pending INR Pending APTT Pending LA dRVVT Screen Ratio Pending LA Technical Interp Pending VBG Lactate Sodium Potassium Chloride Carbon Dioxide Anion Gap BUN Creatinine Est GFR (CKD-EPI 2020) Glucose Calcium Total Bilirubin Conjugated Bilirubin GGT AST ALT Alkaline Phosphatase Lactate Dehydrogenase Troponin I Total Protein Albumin Amylase Lipase TSH Urine Color Urine Clarity Urine pH Ur Specific [place] Urine Protein Urine Ketones Urine Blood Urine Nitrite Urine Bilirubin Urine Urobilinogen Ur Leukocyte Esterase Urine RBC Urine WBC Ur Epithelial Cells Urine Crystals Urine Bacteria Urine Casts Urine Mucus Urine Other Ur Culture Indicated? Ur Random Creatinine U Random Total Protein U [place] Prot/Creat Ratio Urine Glucose Beta-2 GPI IgG Ab Pending Beta-2 GPI IgM Ab Pending Phospholipid IgG Ab Pending Phospholipid IgM Ab Pending COVID-19 Source SARS-CoV-2 (PCR) Influenza Type A (PCR) Influenza Type B (PCR) RSV (PCR) Add-On Test Request Preliminary micro results at discharge 02/09/25 16:37 Urine - Clean Catch Urine Culture - Preliminary Gram positive ger, mixed
[2025-02-13 11:17] LABS: Activated Partial Thrombo Time 23 sec (25 - 37); INR 0.9 (0.9-1.1)
[2025-02-13 17:27] LABS: Beta 2 GP1 Ab IgG <9.4 SGU; Beta 2 GP1 Ab IgM <9.4 SMU
== END 2025-02-10 22:53 ==
LOC: BCD 17:47 → OBS 02-10 05:44
PROVIDERS: Family Medicine; Obstetrics & Gynecology; Admitting Provider Advanced Practice Midwife; PCP Advanced Practice Midwife; Visit Provider Advanced Practice Midwife
DX: O86.81 Puerperal septic thrombophlebitis (principal); O90.81 Anemia of the puerperium; O99.285 Endocrine, nutritional and metabolic diseases complicating the puerperium; O87.2 Hemorrhoids in the puerperium; R00.0 Tachycardia, unspecified; E03.9 Hypothyroidism, unspecified; E28.2 Polycystic ovarian syndrome; O26.63 Liver and biliary tract disorders in the puerperium; R74.01 Elevation of levels of liver transaminase levels; M79.89 Other specified soft tissue disorders; M54.9 Dorsalgia, unspecified; D72.829 Elevated white blood cell count, unspecified; Z79.899 Other long term (current) drug therapy
CPT/HCPCS: 00123; 36415; 80048; 80053; 80076; 83690; 85390; 85610; 85613; 85730; 86146; 86147; 87637; 96365; J1650; 74176; 81003; 81015; 82150; 82565; 82977; 83605; 83615; 84156; 84443; 84484; 85025; 87086; 93005; 93010; 99222; G0378; J2543; J3490